=== PATIENT | male | born 1995 | race Caucasian/White ===

== ENCOUNTER → 2019-10-11 10:25 | Outpatient (CLI) | payer OTHER, SELFPAY | PROVIDERS: PCP Family Medicine; Referring Provider Otolaryngology; Visit Provider Otolaryngology | DX: Z11.59 Encounter for screening for other viral diseases (principal) | CPT/HCPCS: 87635; G2023; U0003 ==

== ENCOUNTER → 2019-10-14 15:17 | Outpatient (CLI) | payer OTHER, SELFPAY ==
[2015-12-30 16:26] VITALS: BMI 26.5
--- NOTE | 2019-10-15 14:41 | SEP_PTH ---
PATIENT: TIFFANY JOEL LOC: [facility] U#:[id number] AGE/SX: 30/M ROOM: RE10/14/[address]: Dr. Federico Mendoza MD : 1995 BED: DIS: SPEC #: [id number] RECD: 10/16/19 14:57 STATUS: BA ASHLEY #: [id number] BRENDAN: 10/15/19 14:[address]: Federico Mendoza DEPT: SURGICAL PATHOLOGY RECD BY: Ang Carrera ENTERED: 10/17/19 11:24 SP TYPE: SEPTUM OTHR DR: Dr. Michael Schafer MD [facility] Tissues: Nasal septum, NOS Procedures: Decalcification bone/plaque Surgery Specimen Level III HEADER OPERATION: Septoplasty, submucosal resection of inferior turbinates PRE-OP DIAGNOSIS: Nasal congestion, hypertrophy of nasal turbinates, deviated nasal septum TISSUE SUBMITTED: Septum MICROSCOPIC DIAGNOSIS Septum: Pieces of bone and cartilage, clinically deviated nasal septum. SJ:wendy 10/22/19 MICROSCOPIC DESCRIPTION Slides are reviewed. GROSS DESCRIPTION Received is one container labeled with the patient's name and not further designated. The specimen consists of multiple fragments of bone and cartilage that in aggregate measure 3 x 3 x 1 cm. Can Doffer tissue is submitted in one cassette after decalcification. / SILVINA:wendy 10/17/19 TC:5 CPT: 29305, 62151
== END ==
PROVIDERS: PCP Family Medicine; Referring Provider Otolaryngology; Visit Provider Otolaryngology
DX: R09.81 Nasal congestion (principal); J34.3 Hypertrophy of nasal turbinates
CPT/HCPCS: 88304; 88311